=== PATIENT | male | born 1960 | race Caucasian/White ===

== ENCOUNTER → 2017-01-08 | Outpatient (CLI) | payer OTHER ==
[~2017-01-08] MED LIST: ATEN50TA2 PO; CART120C PO; HYDR25TAB PO; ISOVUE-370 76% 100ML VIAL (Q9967) As Ordered ONE
--- NOTE | 2017-01-08 15:22 | REP ---
Clinical: Follow up pneumonia versus mass. Comparison: Outside examination dated 09/22/2016. Technique: Axial contrast enhanced images from the thoracic inlet to the upper abdomen using 100 ml Isovue 370 intravenous contrast material with coronal and sagittal re-formations. Findings: The previously identified irregular 3 cm mass-like consolidation in the right lower lobe has completely resolved. Small triangular area of consolidation in the medial right middle lobe as well as small scattered bilateral nodules and nonsolid opacities suggest multifocal pneumonia. No pleural effusion. Adenopathy from prior examination has resolved with mediastinal and hilar lymph nodes now appear normal up to 9 mm. Heart/pericardium and thoracic aorta are stable with mild atherosclerotic changes to the coronary arteries again noted. Surrounding musculoskeletal structures are intact. Limited upper abdomen demonstrates left renal cyst measuring roughly 5.5 cm diameter. Impression: 1. Right lower lobe mass-like consolidation along with adenopathy has resolved. 2. Medial right middle lobe atelectasis/infiltrate and subtle scattered nonsolid opacities suggest multifocal pneumonia / pneumonitis. Follow-up to resolution at 3-6 months may be warranted. Signed by Del Whitten MD 01/08/2017 03:14 P
== END ==
LOC: M RAD 14:05
PROVIDERS: ATTEND Internal Medicine Pulmonary Disease
DX: J84.116 Cryptogenic organizing pneumonia (principal)
CPT/HCPCS: 71260; Q9967

== ENCOUNTER → 2017-08-02 | Outpatient (CLI) | payer OTHER ==
--- NOTE | 2017-08-03 06:45 | REP ---
Clinical: Cryptogenic organizing pneumonia. Technique: Axial contrast enhanced images from the thoracic inlet to the upper abdomen U oozing 100 ml Isovue 370 intravenous contrast material with multiplanar re-formations. Comparison: 01/08/2017. Findings: Minimal residual predominantly medial right upper lobe (image 38) and right middle lobe (images 53 - 58) fibroatelectatic changes are appreciated along with minimal scattered scarring and few subtle small noncalcified nodules measuring up to 6 mm (image 33) are identified. Findings have improved when compared to prior examination and the previously noted scattered small bilateral alveolar infiltrates have essentially resolved. There is continued evidence for mediastinal and hilar adenopathy which appears to be slightly increased when compared to prior examination. Specifically, subcarinal adenopathy measures 3.0 x 1.8 cm, precarinal lymph nodes measure approximately 2.6 x 1.3 cm and right paratracheal lymph nodes measure 1.7 cm diameter (images 29 - 50). Tracheobronchial tree is patent. No pleural effusion/reaction. No subpleural fibrosis. No pneumothorax. Mediastinum demonstrates mild/moderate atherosclerotic changes to the thoracic aorta and coronary arteries without aortic aneurysm/dissection or cardiomegaly. No pericardial effusion. Surrounding musculoskeletal structures demonstrate age-related degenerative changes. Limited upper abdomen suggests fatty infiltration to the liver with normal bilateral adrenal glands and known left renal cyst. Impression: 1. Mild residual medial right upper lobe and right middle lobe fibroatelectatic changes along with stable/mildly increased mediastinal adenopathy. 2. Previously noted scattered alveolar infiltrates have primarily resolved and no new pleuroparenchymal process or pleural effusion is identified. Signed by Del Whitten MD 08/03/2017 06:36 A
== END ==
LOC: M RAD 14:55
PROVIDERS: ATTEND Internal Medicine Pulmonary Disease
DX: J84.116 Cryptogenic organizing pneumonia (principal)
CPT/HCPCS: 71260; Q9967